=== PATIENT | male | born 1990 | race Caucasian/White ===

== ENCOUNTER 2018-05-23 08:41 | Emergency (ER) | payer MEDICAID ==
[~2018-05-23] VITALS: Ht 165.1 cm; Wt 68.2 kg
[2018-05-23 12:36] VITALS: BP 118/88
== END 2018-05-23 12:37 | disposition home or self-care (01) ==
LOC: EMS 08:42
DX: B34.9 Viral infection, unspecified (principal); F17.210 Nicotine dependence, cigarettes, uncomplicated; F12.90 Cannabis use, unspecified, uncomplicated; R19.7 Diarrhea, unspecified